=== PATIENT | female | born 1980 | race Caucasian/White ===

== ENCOUNTER 2022-09-07 08:52 | Observation (INO) | payer BC ==
[~2022-09-07] VITALS: Ht 172.7 cm; Wt 86.4 kg
[~2022-09-07 08:52] MED LIST: CLEOCIN HCL300 MG PO; IBU800 M1 PO; NORCO 325 MG-51 TAB PO; PERCOCET 325 MG1 TA2 PO; PHENERGAN 25 TA25 MG PO; PHENERGAN25 MG RC
[2022-09-07 10:03] LABS: COLLECTION METHOD CLEAN CATCH
[2022-09-07 10:16] LABS: BASO % 0.5 % (0.0-2.0); EOS # 0.1 K/mm3 (0.0-0.7); EOS % 2.2 % (0.0-4.0); GRAN # 4.3 K/mm3 (1.4-6.5); GRAN % 66.5 % (42.2-75.2); HEMOGLOBIN 11.7 g/dl (12.5-16.0); LYMPH # 1.4 K/mm3 (1.2-3.4); LYMPH % 21.7 % (20.0-51.0); MEAN CELL VOLUME 91 fl (80.0-100.0); MEAN CORPUSCULAR HEMOGLOBIN 29 pg (27-31); MEAN CORPUSCULAR HGB CONC 32 g/dl (33.0-37.0); MEAN PLATELET VOLUME 12.3 fl (7.4-10.4); MONO # 0.6 K/mm3 (0.1-0.6); MONO % 8.8 % (1.7-9.3); PLATELET COUNT 221 K/mm3 (130-400); RED BLOOD COUNT 4.01 M/mm3 (4.10-5.30); REDCELL DISTRIBUTION WIDTH-CV 12.5 % (11.5-14.5)
[2022-09-07 10:21] LABS: HEMATOCRIT 36.5 % (37.0-47.0)
[2022-09-07 10:25] LABS: PH 8.5 (5.0-8.5); URINE APPEARANCE Clear (CLEAR/HAZY); URINE BLOOD TRACE-INTACT (NEGATIVE); URINE COLOR Straw (YELLOW); URINE GLUCOSE Negative (NEGATIVE); URINE KETONE Negative (NEGATIVE); URINE NITRATE Negative (NEGATIVE); URINE PROTEIN(semi-quant) Negative (NEGATIVE); URINE UROBILINOGEN 0.2 E.U/dL (0.2-1.0)
[2022-09-07 10:29] LABS: ALBUMIN 3.6 gm/dL (3.5-5.0); BILIRUBIN,TOTAL 0.3 mg/dL (0.2-1.2); C-REACTIVE PROTEIN 0.56 mg/dL (0.00-0.50); CALCIUM 8.6 mg/dL (8.4-10.2); CREATININE, serum 0.72 mg/dL (0.57-1.11); POTASSIUM 3.8 mmol/L (3.5-4.5); TOTAL PROTEIN 6.5 gm/dL (6.2-8.1)
[2022-09-07 10:30] LABS: MUCOUS Present (NOT PRESENT); SQUAMOUS EPITHELIAL 0-2 /hpf (0-10); URINE BACTERIA Rare /hpf (NONE SEEN); URINE RBC 0-2 /hpf (0-2)
[2022-09-07 15:42] VITALS: BP 159/99; PULSE 99; TEMP 98.7
[2022-09-07] MEDS ORDERED: LEXAPRO 10MG10 MG PO (15:44)
[2022-09-07] MEDS ORDERED: PYRIDIUM 100MG100 MG PO (17:26)
[2022-09-07 18:29] VITALS: BP 147/91; PULSE 89
[2022-09-07 18:44] VITALS: BP 127/76; PULSE 94
--- NOTE | 2022-09-07 18:54 | NUR ---
Pt back from procedure, reports some pain after ambulating and urinating. PRN pain medications administered. Discussed discharge with patient. Call light within reach.
[2022-09-07 18:59] VITALS: BP 136/83; PULSE 87
[2022-09-07 19:14] VITALS: BP 142/76; PULSE 101; TEMP 98.3
[2022-09-07 19:44] VITALS: BP 158/80; PULSE 92
--- NOTE | 2022-09-07 20:00 | NUR ---
REVIEWED DISCHARGE INSTRUCTIONS WITH PT. SENT HOME [employer] TAKE HOME PACK #4. ENCOURAGED USE OF IBUPROFEN WELL FOR DISCOMFORT. REMOVED INT FROM [facility], ANGIOCATH INTACT. VOIDING AND EATING WIHTOUT PROBLEM.
--- NOTE | 2022-09-07 20:22 | NUR ---
DISCHARGED VIA W/C TO PRIVATE CAR. PERSONAL BELONGINGS AND COPY OF DISCHARGE INSTRUCTIONS SENT WITH PATIENT.
== END 2022-09-07 20:22 | disposition home or self-care (01) ==
LOC: COL.ER 08:52 → SURG 11:37
PROVIDERS: Nurse Practitioner; ADMIT Urology
DX: N13.2 Hydronephrosis with renal and ureteral calculous obstruction (principal)
CPT/HCPCS: C1769; G0378; J0690; J1100; J1170; J1885; J2250; J2405; J2704; J3010; J7030; Q9967